=== PATIENT | male | born 1980 | race Caucasian/White ===

== ENCOUNTER 2017-02-27 21:00 | Emergency (ER) | payer SELFPAY ==
--- NOTE | 2017-02-27 22:04 | ED.PDOC ---
History of Present Illness - General Chief Complaint: Respiratory Problem Stated Complaint: cough, congestion, nasal drainage Time Seen by Provider: 02/27/17 22:03 Source: patient Exam Limitations: no limitations - History of Present Illness Comments: Paul Bejarano 37 y/o male stated that he had dry cough for the last 3 days and nasal congestion;feels feverish no chills Timing/Duration: other - 3 days Cough Quality/Degree: dry cough Possible Cause: no prior episodes Improving Factors: nothing Worsening Factors: nothing Associated Symptoms: denies symptoms Respiratory Risk Factors: no cause identified Allergies/Adverse Reactions: Allergies NO KNOWN ALLERGY Allergy (Verified 02/27/17 21:34) Home Medications: Ambulatory Orders Albuterol Inhaler [Ventolin Hfa Inhaler] 108 mcg IN Q4HR PRN #1 inh 02/27/17 Review of Systems - Review of Systems Constitutional: States: no symptoms reported EENTM: States: see HPI Respiratory: States: see HPI Cardiology: States: no symptoms reported Gastrointestinal/Abdominal: States: no symptoms reported Genitourinary: States: no symptoms reported Musculoskeletal: States: no symptoms reported Skin: States: no symptoms reported Neurological: States: no symptoms reported Endocrine: States: no symptoms reported Hematologic/Lymphatic: States: no symptoms reported Past Medical History (General) - Patient Medical History Hx Asthma: No Hx Diabetes: No Hx Gastroesophageal Reflux: No Surgical History: cholecystectomy, other - Vaccination History Hx Tetanus, Diphtheria Vaccination: No Hx Influenza Vaccination: No Hx Pneumococcal Vaccination: No - Social History Hx Tobacco Use: Yes Hx Alcohol Use: No - Female History Patient is a Female of Child Bearing Age (10 -59 yrs old): No Patient : No Family Medical History - Family History Mother Family History: Unknown Physical Exam - Physical Exam General Appearance: Alert, No apparent distress Eye Exam: bilateral normal ENT Exam: TMs normal, pharynx normal, nasal congestion, nasal drainage Neck: non-tender, full range of motion Respiratory: chest non-tender, no respiratory distress, wheezing - mild expiratory Cardiovascular/Chest: normal peripheral pulses, regular rate, rhythm, no murmur Gastrointestinal/Abdominal: normal bowel sounds, non tender, soft Extremity: normal range of motion, non-tender Neurologic: no motor/sensory deficits, alert, oriented x 3 Skin Exam: normal color, warm/dry Lymphatic: no adenopathy Progress - Progress Progress: 02/27/17 22:34 Vital Signs - 8 hr 02/27/17 21:35 Temperature 98.8 F Pulse Rate [ 89 left] Respiratory 18 Rate Blood Pressure 128/80 [left] O2 Sat by Pulse 97 Oximetry - Results/Orders Results/Orders: Laboratory Tests 02/27/17 22:15 WBC 8.7 RBC 5.34 Hgb 16.0 Hct 47.2 MCV 88.3 MCH 30.0 MCHC 33.9 RDW 13.2 Plt Count 152 MPV 9.0 Absolute Neuts (auto) 6.40 Absolute Lymphs (auto) 1.20 Absolute Monos (auto) 0.80 Absolute Eos (auto) 0.20 Absolute Basos (auto) 0.10 Neutrophils % 74.0 Lymphocytes % 14.2 L Monocytes % 9.4 H Eosinophils % 1.7 Basophils % 0.7 - EKG/XRAY/CT XRAY: chest - no acute abnormalities /radiologist Departure - Departure Clinical Impression: Acute bronchospasm, Upper respiratory tract hypersensitivity reaction, site unspecified Time of Disposition: 23:00 Disposition: Discharge to Home or Self Care Condition: Fair Departure Forms: ED Discharge - Pt. Copy, Patient Portal Self Enrollment Prescriptions: Albuterol Inhaler [Ventolin Hfa Inhaler] 108 mcg IN Q4HR PRN #1 inh PRN Reason: Cough Home Medications: Ambulatory Orders Albuterol Inhaler [Ventolin Hfa Inhaler] 108 mcg IN Q4HR PRN #1 inh 02/27/17
[2017-02-27] MEDS ORDERED: IPRATROPIUM/ALBUTEROL 3 ML VIAL NEB ONE (22:08)
[2017-02-27] MEDS ORDERED: BENZONATATE PERLES 100 MG CAP PO ONE (22:09)
--- NOTE | 2017-02-27 22:31 | RAD ---
EXAM DESCRIPTION: Chest,1 View CLINICAL HISTORY: 37 years Male cough COMPARISON: None. FINDINGS: The cardiomediastinal silhouette appears unremarkable. No consolidating infiltrates or pleural effusions. No pneumothorax. IMPRESSION: No acute abnormality is identified. Electronically signed by: Mary Carmen Angela 02/27/2017 10:29 PM CDT
[2017-02-27 23:21] VITALS: BP 117/63; TEMP 97.8; O2SAT 95
== END 2017-02-27 23:21 | disposition home or self-care (01) ==
LOC: ER 21:00
DX: J98.01 Acute bronchospasm (principal); J39.3 Upper respiratory tract hypersensitivity reaction, site unspecified; Z87.891 Personal history of nicotine dependence
CPT/HCPCS: 36415; 71010; 85025; J7620